=== PATIENT | female | born 1935 | race Caucasian/White ===

== ENCOUNTER 2016-07-11 10:20 | Emergency (ER) | payer MEDICARE, OTHER ==
[2016-07-11 10:45] VITALS: BP 148/80
--- NOTE | 2016-07-11 10:55 | UC ---
Respiratory Complaint HPI - HPI Summary HPI Summary: The patient comes in today for: 1. Cough, frontal sinus soreness, post nasal drip: Onset: 2 days ago. Palliative/provocative: Pressing on the front sinus area makes the soreness worse. Quality: Croupy cough. Region: Lungs and frontal sinuses Severity: 0/10 Time: Constant. Associated symptoms: Fever: None. Cough production: None Rhinitis: clear. Chest pain: NOne. Dyspnea: None. Fatigue: Present. * - History of Current Complaint Chief Complaint: UCRespiratory Stated Complaint: COUGH,SINUS Time Seen by Provider: 07/11/16 10:41 Hx Obtained From: Patient - Allergies/Home Medications Allergies/Adverse Reactions: Allergies Allergy/AdvReac Type Severity Reaction Status Date / Time Carisoprodol [From [employer]] Allergy Unknown Unknown Verified 07/11/16 10:32 Reaction Details Home Medications: Home Medications Calcium Polycarbophil TAB* [Fibercon TAB*] 625 mg PO BID 07/11/16 [History Confirmed 07/11/16] Valsartan [Valsartan] 07/11/16 [History] guaiFENesin ER TAB [Mucinex*] 600 mg PO BID PRN 07/11/16 [History Confirmed 04/17] PMH/Surg Hx/FS Hx/Imm Hx Previously Healthy: No Endocrine History Of: Reports: Dyslipidemia Denies: Diabetes, Thyroid Disease, Hyperthyroidism, Hypothyroidism Cardiovascular History Of: Reports: Hypertension Denies: Cardiac Disorders, Pacemaker/ICD, Myocardial Infarction, Congestive Heart Failure, Atrial Fibrillation, Deep Vein Thrombosis, Bleeding Disorders Respiratory History Of: Denies: COPD, Asthma, Bronchitis, Pneumonia, Pulmonary Embolism GI/ History Of: Denies: Gastroesophageal Reflux, Ulcer, Gastrointestinal Bleed, Gall Bladder Disease, Kidney Stones, Diverticulitis, Renal Disease, Urosepsis Neurological History Of: Denies: TIA, CVA, Dementia, Seizures, Migraine Psychological History Of: Denies: Anxiety, Depression, Bipolar Disorder, Schizophrenia, Post Traumatic Stress Disorder Cancer History Of: Denies: Lung Cancer, Colorectal Cancer, Breast Cancer, Prostate Cancer, Cervical Cancer Other History Of: Anticoagulant Therapy - Aspirin 81 mg daily for "general health." Negative For: HIV, Hepatitis B, Hepatitis C - Surgical History Surgical History: Yes Surgery Procedure, Year, and Place: 1966 breast lumpectomy benign. Rt HIP REPLACEMENT - Family History Known Family History: Positive: Cardiac Disease, Hypertension - Social History Occupation: Retired Alcohol Use: Daily Alcohol Amount: 2 beers daily Substance Use Type: None Smoking Status (MU): Former Smoker When Did the Patient Quit Smoking/Using Tobacco: 16 years ago - Immunization History Most Recent Influenza Vaccination: FALL 2015 Review of Systems Constitutional: Negative Skin: Negative Eyes: Negative ENT: Nasal Discharge Respiratory: Cough Cardiovascular: Negative Gastrointestinal: Negative Genitourinary: Negative All Other Systems Reviewed And Are Negative: Yes Physical Exam Triage Information Reviewed: Yes Appearance: Well-Appearing, No Pain Distress, Well-Nourished Vital Signs: Initial Vital Signs Temp 97.6 F 07/11/16 10:35 Pulse 78 07/11/16 10:35 Resp 24 07/11/16 10:35 BP 148/80 07/11/16 10:35 Pulse Ox 98 07/11/16 10:35 Vital Signs Reviewed: Yes Eyes: Positive: Conjunctiva Clear. Negative: Discharge ENT: Positive: Hearing grossly normal, Other: - There is mild tenderness to palpation of the frontal sinuses.. Negative: Pharyngeal erythema, Nasal congestion, Nasal drainage, TM bulging, TM dull, TM red, Tonsillar swelling, Tonsillar exudate Dental: Negative: Gross Decay/Caries @, Dental Fracture @ Neck: Positive: Supple, Nontender, No Lymphadenopathy. Negative: Nuchal Rigidity Respiratory: Positive: Lungs clear, No respiratory distress, No accessory muscle use. Negative: Crackles, Wheezing Cardiovascular: Positive: RRR, No Murmur Abdomen Description: Positive: Nontender, No Organomegaly, Soft. Negative: Distended, Guarding, Peritoneal Signs Musculoskeletal: Positive: Strength Intact, ROM Intact, No Edema Neurological: Positive: Alert, Muscle Tone Normal Psychological: Positive: Age Appropriate Behavior, Consolable Skin: Negative: rashes, breakdown UC Diagnostic Evaluation - Laboratory O2 Sat by Pulse Oximetry: 98 Respiratory Course/Dx - Course Course Of Treatment: The patient was told of my impression that she has only a viral infection. However, she wanted an antibiotic in the event she gets worse , "It always gets worse." - Differential Dx/Diagnosis Differential Diagnosis/HQI/PQRI: Bronchitis, Laryngitis, Sinusitis Provider Diagnoses: upper respiratory infection. Discharge - Discharge Plan Condition: Stable Disposition: HOME Patient Education Materials: Upper Respiratory Infection (ED) Referrals: Neno Dailey MD [Primary Care Provider] - 1 Week (Please see your primary care provider in about a week to see how well you are doing. If you get worse, please be seen sooner.)
== END 2016-07-11 11:16 | disposition home or self-care (01) ==
LOC: UCCORT 10:20
DX: J06.9 Acute upper respiratory infection, unspecified (principal); Z79.82 Long term (current) use of aspirin; Z96.641 Presence of right artificial hip joint; Z87.891 Personal history of nicotine dependence
CPT/HCPCS: 99212; G0463